=== PATIENT | male | born 1970 | race Caucasian/White ===

== ENCOUNTER 2016-11-05 22:47 | Emergency (ER) | payer MEDICARE ==
[2016-11-06] MEDS ORDERED: MORPHINE 4 MG/ML SYR ONE (00:36)
[2016-11-06] MEDS ORDERED: ONDANSETRON 4 MG VIAL ONE (00:36)
[2016-11-06] MEDS ORDERED: SODIUM CHLORIDE 0.9% 1,000 ML ONE (00:36)
[2016-11-06] MEDS ORDERED: ALU/MAG/SIM 30 ML UDC ONE (02:35)
[2016-11-06] MEDS ORDERED: LIDOCAINE 2% VISC 15 ML UDC ONE (02:35)
[2016-11-06] MEDS ORDERED: PANTOPRAZOLE 40 MG VIAL IV ONE (02:36)
[2016-11-06] MEDS ORDERED: MORPHINE 2 MG/ML SYR ONE (04:19)
== END 2016-11-06 04:26 | disposition home or self-care (01) ==
LOC: ER 22:47
DX: K25.3 Acute gastric ulcer without hemorrhage or perforation (principal); B96.81 Helicobacter pylori [H. pylori] as the cause of diseases classified elsewhere; R11.10 Vomiting, unspecified; R10.11 Right upper quadrant pain; K75.9 Inflammatory liver disease, unspecified; F17.210 Nicotine dependence, cigarettes, uncomplicated
CPT/HCPCS: 36415; 76705; 80053; 81003; 82553; 83690; 84484; 85025; 86677; 93005; 96361; 96374; 96375; 96376; 99284; J2270; J2405